=== PATIENT | male | born 1995 | race African-American/Black ===

== ENCOUNTER 2017-05-12 12:33 | Emergency (ER) | payer SELFPAY ==
[~2017-05-12] VITALS: Ht 185.4 cm; Wt 81.8 kg
[2017-05-12 12:33] VITALS: BP 138/75
[2017-05-12] MEDS ORDERED: BUPR75 PO (12:34)
[2017-05-12] MEDS ORDERED: SERT50TA12 PO (12:34)
[2017-05-12 13:03] LABS: INFLUENZA TYPE B NEGATIVE FOR TYPE B (NEGATIVE)
== END 2017-05-12 14:39 | disposition left against medical advice (07) ==
LOC: EMS 12:35
DX: J11.1 Influenza due to unidentified influenza virus with other respiratory manifestations (principal); Z53.21 Procedure and treatment not carried out due to patient leaving prior to being seen by health care provider
CPT/HCPCS: 87804; 99281